=== PATIENT | male | born 1950 | race African-American/Black ===

== ENCOUNTER 2023-10-31 19:27 | Emergency (ER) | payer OTHER ==
[~2023-10-31] VITALS: Ht 177.8 cm; Wt 79.0 kg
[2023-10-31 19:55] VITALS: O2SAT 100
[2023-10-31 20:43] LABS: BASOPHILS % 0.6 % (0.0-2.0); EOSINOPHILS % 1.7 % (0.0-5.0); HEMATOCRIT. 42.4 % (42.0-52.0); HEMOGLOBIN. 13.7 g/dL (14.0-18.0); LYMPHOCYTES % 27.7 % (20.0-50.0); MEAN CORPUSCULAR HEMOGLOBIN 28.1 pg (28.0-32.0); MEAN CORPUSCULAR HGB CONC 32.3 g/dL (31.0-37.0); MEAN CORPUSCULAR VOLUME 87.1 fL (80.0-94.0); MEAN PLATELET VOLUME 7.3 fl (7.4-10.4); MONOCYTES % 9.9 % (2.0-8.0); NEUTROPHILS % 60.1 % (40.0-76.0); PLATELET 291 x1000/uL (130-400); RED BLOOD CELL COUNT 4.87 mill/uL (4.7-6.1); RED CELL DISTRIBUTION WIDTH 14.4 % (11.6-14.6); WHITE BLOOD COUNT 7.6 x1000/uL (4.5-11.0)
[2023-10-31 20:56] LABS: CHLORIDE 108 mEq/L (98-107); POTASSIUM 4.3 mEq/L (3.5-5.1); SODIUM 141 mEq/L (136-145)
[2023-10-31 20:57] LABS: CARBON DIOXIDE 25 mEq/L (21-32)
[2023-10-31 20:58] LABS: CALCIUM 9.3 mg/dL (8.7-10.4)
[2023-10-31 21:02] LABS: CREATININE 1.4 mg/dL (0.6-1.3); GLUCOSE 106 mg/dL (70-105)
[2023-10-31 21:03] LABS: UREA NITROGEN BLOOD 22 mg/dL (9-23)
[2023-10-31 23:50] LABS: CLARITY URINE CLEAR (CLEAR); COLOR URINE YELLOW (YELLOW); GLUCOSE URINE NEGATIVE (NEGATIVE); KETONES URINE NEGATIVE (NEGATIVE); LEUKOCYTE ESTERASE URINE 2+ (NEGATIVE); NITRITE URINE NEGATIVE (NEGATIVE); OCCULT BLOOD URINE 3+ (NEGATIVE); PROTEIN URINE TRACE (NEGATIVE); SPECIFIC GRAVITY URINE >1.030 (1.005-1.030); UROBILINOGEN URINE 0.2 E.U./dL (0.2-1.0)
[2023-10-31 23:53] LABS: RBC URINE 25-50 /hpf (0-2)
[2023-10-31 23:54] LABS: BACTERIA URINE TRACE; SQUAMOUS EPITHELIAL CELL URINE 1+ /lpf (RARE/1+)
[2023-11-01 00:30] VITALS: BP 159/94; PULSE 66; RESP 16; TEMP 97.5
[2023-11-01] MEDS ORDERED: TAMS-11 MT (01:09)
[2023-11-01] MEDS ORDERED: TOPUD MT (01:09)
== END 2023-11-01 01:15 | disposition home or self-care (01) ==
LOC: ER 19:27
DX: R33.9 Retention of urine, unspecified (principal); N40.0 Benign prostatic hyperplasia without lower urinary tract symptoms; I10 Essential (primary) hypertension; F19.90 Other psychoactive substance use, unspecified, uncomplicated
CPT/HCPCS: 36415; 51702; 80048; 81003; 85025; 99284

== ENCOUNTER 2023-12-09 16:10 | Emergency (ER) | payer OTHER ==
[~2023-12-09] VITALS: Ht 180.3 cm; Wt 77.0 kg
[~2023-12-09 16:10] MED LIST: TAMS-11 MT; TOPUD MT
[2023-12-09 16:15] VITALS: BP 140/84; TEMP 98.1; O2SAT 99
[2023-12-09 16:16] VITALS: PULSE 78; RESP 18
[2023-12-09 17:49] LABS: CHLORIDE 106 mEq/L (98-107); POTASSIUM 4.7 mEq/L (3.5-5.1); SODIUM 139 mEq/L (136-145)
[2023-12-09 17:51] LABS: CALCIUM 9.9 mg/dL (8.7-10.4); CARBON DIOXIDE 26 mEq/L (21-32)
[2023-12-09 17:52] LABS: BASOPHILS % 0.9 % (0.0-2.0); EOSINOPHILS % 2.5 % (0.0-5.0); HEMATOCRIT. 42.1 % (42.0-52.0); HEMOGLOBIN. 13.5 g/dL (14.0-18.0); LYMPHOCYTES % 29.5 % (20.0-50.0); MEAN CORPUSCULAR HEMOGLOBIN 27.8 pg (28.0-32.0); MEAN CORPUSCULAR HGB CONC 32.2 g/dL (31.0-37.0); MEAN CORPUSCULAR VOLUME 86.4 fL (80.0-94.0); MEAN PLATELET VOLUME 7.2 fl (7.4-10.4); MONOCYTES % 9.5 % (2.0-8.0); NEUTROPHILS % 57.6 % (40.0-76.0); PLATELET 324 x1000/uL (130-400); RED BLOOD CELL COUNT 4.87 mill/uL (4.7-6.1); RED CELL DISTRIBUTION WIDTH 14.2 % (11.6-14.6); WHITE BLOOD COUNT 9.7 x1000/uL (4.5-11.0)
[2023-12-09 17:56] LABS: CREATININE 1.4 mg/dL (0.6-1.3); GLUCOSE 104 mg/dL (70-105); UREA NITROGEN BLOOD 25 mg/dL (9-23)
[2023-12-09 17:59] LABS: GLUCOSE URINE NEGATIVE (NEGATIVE); KETONES URINE NEGATIVE (NEGATIVE)
[2023-12-09 18:26] LABS: CLARITY URINE TURBID (CLEAR); COLOR URINE RED (YELLOW); SPECIFIC GRAVITY URINE 1.018 (1.005-1.030)
[2023-12-09 18:27] LABS: PROTEIN URINE 2+ (NEGATIVE)
[2023-12-09 18:28] LABS: NITRITE URINE POSITIVE (NEGATIVE); OCCULT BLOOD URINE 3+ (NEGATIVE); UROBILINOGEN URINE 0.2 E.U./dL (0.2-1.0)
[2023-12-09 18:29] LABS: LEUKOCYTE ESTERASE URINE 2+ (NEGATIVE)
[2023-12-09 18:45] LABS: RBC URINE TNTC /hpf (0-2); SQUAMOUS EPITHELIAL CELL URINE FEW /lpf (RARE/1+)
[2023-12-09 18:46] LABS: BACTERIA URINE 3+
[2023-12-09] MEDS: LIDOCAINE HCL 1% 20ML VIAL INFIL ONE (19:15)
[2023-12-09] MEDS: CEFTRIAXONE SODIUM 1G VIAL IM ONE (19:15)
[2023-12-09] MEDS ORDERED: SULF1TAB48 MT (20:41)
[2023-12-09] MEDS ORDERED: PHEN-910 MT (20:41)
== END 2023-12-09 22:51 | disposition home or self-care (01) ==
LOC: ER 16:10
DX: N30.90 Cystitis, unspecified without hematuria (principal); I10 Essential (primary) hypertension; Z79.899 Other long term (current) drug therapy
CPT/HCPCS: 99283; 80048; 81003; 85025; 87086; 36415; 96372; J0696

== ENCOUNTER 2024-02-10 07:24 | Emergency (ER) | payer OTHER ==
[~2024-02-10] VITALS: Ht 180.3 cm; Wt 78.0 kg
[~2024-02-10 07:24] MED LIST changes: +PHEN-910 MT; +SULF1TAB48 MT
[2024-02-10 07:28] VITALS: O2SAT 99
[2024-02-10 07:32] VITALS: BP 126/87; PULSE 80; RESP 16; TEMP 98.6; O2SAT 99
[2024-02-10 11:07] LABS: BASOPHILS % 0.9 % (0.0-2.0); EOSINOPHILS % 1.5 % (0.0-5.0); HEMATOCRIT. 43.6 % (42.0-52.0); HEMOGLOBIN. 14.2 g/dL (14.0-18.0); LYMPHOCYTES % 28.9 % (20.0-50.0); MEAN CORPUSCULAR HEMOGLOBIN 28.2 pg (28.0-32.0); MEAN CORPUSCULAR HGB CONC 32.6 g/dL (31.0-37.0); MEAN CORPUSCULAR VOLUME 86.4 fL (80.0-94.0); MEAN PLATELET VOLUME 6.9 fl (7.4-10.4); MONOCYTES % 9.5 % (2.0-8.0); NEUTROPHILS % 59.2 % (40.0-76.0); PLATELET 307 x1000/uL (130-400); RED BLOOD CELL COUNT 5.05 mill/uL (4.7-6.1); RED CELL DISTRIBUTION WIDTH 14.8 % (11.6-14.6); WHITE BLOOD COUNT 7.2 x1000/uL (4.5-11.0)
[2024-02-10 11:16] LABS: POTASSIUM 4.3 mEq/L (3.5-5.1)
[2024-02-10 11:22] LABS: CREATININE 1.6 mg/dL (0.6-1.3)
[2024-02-10 12:35] LABS: CLARITY URINE TURBID (CLEAR); COLOR URINE YELLOW (YELLOW); GLUCOSE URINE NEGATIVE (NEGATIVE); KETONES URINE NEGATIVE (NEGATIVE); LEUKOCYTE ESTERASE URINE 3+ (NEGATIVE); NITRITE URINE POSITIVE (NEGATIVE); OCCULT BLOOD URINE 1+ (NEGATIVE); PROTEIN URINE 1+ (NEGATIVE); SPECIFIC GRAVITY URINE 1.016 (1.005-1.030); UROBILINOGEN URINE 0.2 E.U./dL (0.2-1.0)
[2024-02-10 12:50] LABS: BACTERIA URINE 4+; RBC URINE 15-25 /hpf (0-2); SQUAMOUS EPITHELIAL CELL URINE NONE SEEN /lpf (RARE/1+); WBC URINE TNTC /hpf (0-2); YEAST URINE NONE SEEN
[2024-02-10] MEDS ORDERED: CEFP200T13 MT (12:55)
== END 2024-02-10 14:14 | disposition home or self-care (01) ==
LOC: ER 07:24
DX: N17.9 Acute kidney failure, unspecified (principal); R33.9 Retention of urine, unspecified; D29.1 Benign neoplasm of prostate; I10 Essential (primary) hypertension; F19.90 Other psychoactive substance use, unspecified, uncomplicated
CPT/HCPCS: 36415; 51702; 76857; 80048; 81003; 85025; 87077; 87186; 99284